=== PATIENT | female | born 1950 | race American Indian/Alaskan Native ===

== ENCOUNTER 2018-02-17 07:49 | Day surgery (SDC) | payer MEDICARE ==
[2018-02-17 09:01] LABS: Basophils # (Auto) 0.1 K/mm3 (0.0-0.1); Basophils % (Auto) 1.2 % (0.0-1.8); Eosinophils # (Auto) 0.1 K/mm3 (0.0-0.4); Eosinophils % (Auto) 1.4 % (0.0-4.3); Hematocrit 34.3 % (30.3-42.9); Hemoglobin 11.1 gm/dl (10.1-14.3); Lymphocytes # (Auto) 0.6 K/mm3 (1.2-5.4); Lymphocytes % (Auto) 9.4 % (13.4-35.0); Mean Corpuscular HGB Conc 33 % (30-34); Mean Corpuscular Hemoglobin 26 pg (28-32); Mean Corpuscular Volume 80 fl (79-97); Monocytes # (Auto) 0.5 K/mm3 (0.0-0.8); Monocytes % (Auto) 8.6 % (0.0-7.3); Platelet Count 174 K/mm3 (140-440); Red Blood Count 4.27 M/mm3 (3.65-5.03)
[2018-02-17 09:19] LABS: Red Cell Distribution Width 20.3 % (13.2-15.2)
[2018-02-17 09:27] LABS: INR 1.14 (0.87-1.13)
[2018-02-17 09:28] LABS: Partial Thromboplastin Time 34.2 Sec. (24.2-36.6)
--- NOTE | 2018-02-17 11:59 | Ultrasound Report ---
ULTRASOUND THORACENTESIS History: Right pleural effusion. Description of procedure: Informed consent was obtained. Sterile technique was utilized. 1% lidocaine for skin anesthesia. Using ultrasound guidance, a 5 [place] centesis needle was advanced into the right pleural space. There was spontaneous return of yellow, slightly cloudy fluid. 900 cc of fluid was aspirated. 120 cc of fluid was sent to lab for analysis. No complications. Impression: Successful ultrasound guided right thoracentesis as described.
--- NOTE | 2018-02-17 12:05 | XRay Report ---
AP CHEST: HISTORY: Left pleural effusion, recent left thoracentesis Recent ultrasound-guided left thoracentesis was performed. There is near complete evacuation of the left pleural fluid. The lungs are clear. No pneumothorax. There is mild cardiomegaly with normal pulmonary vascularity. Thoracic spinal fixation is noted. IMPRESSION: No evidence for pneumothorax.
[2018-02-17 12:55] VITALS: BP 117/70
[2018-02-17 15:11] LABS: Total Cells Counted 100 /mm3
--- NOTE | 2018-02-17 15:46 | Short Stay Summary ---
Short Stay Documentation Date of service: 02/17/18 - History Principal diagnosis: right pleural effusion H&P: obtained from office - Allergies and Medications Current Medications: Allergies levofloxacin [From Levaquin] Allergy (Verified 02/17/18 09:32) Swelling GENO Inhibitors Adverse Reaction (Verified 02/17/18 09:33) Unknown pregabalin [From Lyrica] Adverse Reaction (Verified 02/17/18 09:33) Unknown Home Medications Medication Instructions Recorded Confirmed Last Taken Type Amiodarone [Cordarone 200 MG TAB] 200 mg PO DAILY 02/17/18 02/17/18 02/16/18 History 200mg Atorvastatin Calcium [Lipitor] 20 mg PO QHS 02/17/18 02/17/18 02/16/18 History 20mg Escitalopram Oxalate [Lexapro] 5 mg PO QDAY 02/17/18 02/17/18 02/16/18 History 5mg Furosemide [Lasix TAB] 20 mg PO DAILY 02/17/18 02/17/18 02/16/18 History 20mg Pantoprazole [Protonix TAB] 40 mg PO DAILY 02/17/18 02/17/18 02/16/18 History 40mg Potassium Chloride [Klor-Con 8] 8 meq PO DAILY 02/17/18 02/17/18 02/16/18 History 8meq - Physical exam General appearance: no acute distress Lungs: Clear to auscultation - Brief post op/procedure progress note Date of procedure: 02/17/18 Pre-op diagnosis: right pleural effusion Post-op diagnosis: same Procedure: US thoracentesis, right Anesthesia: local Findings: moderate right pleural effusion Surgeon: NICK ARORA Estimated blood loss: none Pathology: list (120cc) Specimen disposition: to lab Condition: stable - Hospital course Hospital course: uneventful - Disposition Condition at discharge: Good Short Stay Discharge Plan Follow up with: NICOLE LAUGHLIN MD [Primary Care Provider] - 7 Days
[2018-02-19 07:33] LABS: LDH,Body Fluid 98; Total Protein,Body Fluid < 3.0 (15.0-45.0)
== END 2018-02-17 13:13 ==
LOC: CATHLABREC 07:49 → EDSTATUS 09:00 → CATHLABREC 13:13
PROVIDERS: ATTEND Internal Medicine Critical Care Medicine
DX: J90 Pleural effusion, not elsewhere classified (principal); Z79.899 Other long term (current) drug therapy; Z79.01 Long term (current) use of anticoagulants
CPT/HCPCS: 32555; 36415; 71045; 82947; 83605; 84160; 85025; 85610; 85730; 87116; 88112; 88305; 89051